=== PATIENT | female | born 1980 | race Caucasian/White ===

== ENCOUNTER 2019-05-08 15:53 | Outpatient (CLI) | payer OTHER, SELFPAY ==
--- NOTE | ~2019-05-08 | US_ITS ---
EXAMINATION: US OB <= 14 weeks fetus DATE: 05/08/2019 16:19 INDICATION: First trimester dating TECHNIQUE: Real-time pelvic transabdominal and transvaginal ultrasound was performed. COMPARISON: None. FINDINGS: The uterus measures 13.0 x 5.8 x 7.7 cm. There is an intrauterine gestational sac. There i s a 1.0 x 0.7 x 1.4 cm hypoechoic area adjacent to the gestational sac. A yolk sac is identified. Fet al heart motion is identified measuring 173 beats per minute (bpm) by M-mode Doppler. The crown rump length measures 2.1 cm , which correlates with an estimated gestational age of 8 weeks and 5 da y(s) (+/-) 5 day(s). The left ovary is not visualized however no left adnexal abnormality is seen. The right ovary measure s 3.3 x 1.9 x 2.8 cm. There is no free fluid in the pelvis. IMPRESSION: 1. Live intrauterine with an estimated gestational age of 8 weeks and 5 day(s) (+/-) 5 day( s) and an estimated delivery date of 12/13/2019. 2. Small subchronic hemorrhage. Reviewed, dictated and finalized at location A. [facility]ER SERGEANT IMPRESSION: 1. Live intrauterine with an estimated gestational age of 8 weeks and 5 day(s) (+/-) 5 day(s) and an estimated delivery date of 12/13/2019. 2. Small subchronic hemorrhage.
== END 2019-05-08 15:54 ==
PROVIDERS: PCP Family Medicine; Visit Provider Nurse Practitioner
DX: Z36.87 Encounter for antenatal screening for uncertain dates (principal); O45.91 Premature separation of placenta, unspecified, first trimester; Z3A.08 8 weeks gestation of pregnancy
CPT/HCPCS: 76801

== ENCOUNTER 2019-06-05 15:48 | Outpatient (CLI) | payer OTHER, SELFPAY ==
--- NOTE | ~2019-06-05 | US_ITS ---
EXAMINATION: US OB limited DATE: 06/05/2019 16:09 INDICATION: Subchorionic hemorrhage TECHNIQUE: Real-time transabdominal obstetric ultrasound. FINDINGS: Comparison ultrasound dated 05/08/2019 The uterus measures 15.5 x 6.5 x 9.1 cm. There is a small subchorionic hemorrhage measuring 2.3 x 2 x 1.4 cm. There is an intrauterine gestational sac, with pole identified. heart rate is 16 0 BPM. IMPRESSION: 1. Single living intrauterine with heart rate of 160 BPM. 2: Small subchorionic hemorrhage measuring 2.3 x 2 x 1.4 cm. Reviewed, dictated and finalized at location A.
== END 2019-06-05 15:49 ==
PROVIDERS: Visit Provider Obstetrics & Gynecology Gynecology
DX: O36.8910 Maternal care for other specified fetal problems, first trimester, not applicable or unspecified (principal)
CPT/HCPCS: 76815

== ENCOUNTER 2019-10-23 14:44 | Outpatient (RCR) | payer OTHER, SELFPAY ==
[2019-10-23 16:53] LABS: Hematocrit 28.7 % (37.0-47.0); Hemoglobin 9.3 g/dL (12.0-15.0)
[2019-10-23 16:55] LABS: Glucose 1 Hour PP 50gm Dose 130 mg/dL
[2019-10-23 18:50] LABS: HIV 1/2 Ab P24 Ag Result Negative (Negative)
[2019-10-23 19:23] LABS: Vitamin D 25 Hydroxy 43.3 ng/mL
[2019-10-26] MEDS: RHO(D) IMMUNE GLOBULIN 300 MCG SYRINGE IM (14:30)
== END 2020-01-21 23:59 | disposition home or self-care (01) ==
LOC: ANHLAB 14:44
PROVIDERS: PCP Family Medicine; Visit Provider Nurse Practitioner
DX: Z29.13 Encounter for prophylactic Rho(D) immune globulin (principal); Z11.4 Encounter for screening for human immunodeficiency virus [HIV]; O36.0920 Maternal care for other rhesus isoimmunization, second trimester, not applicable or unspecified; E55.9 Vitamin D deficiency, unspecified; Z3A.00 Weeks of gestation of pregnancy not specified
CPT/HCPCS: 36415; 82306; 82947; 85014; 85018; 85461; 86703; 90384; 96372; G0432; J2790

== ENCOUNTER 2019-11-17 15:28 | Outpatient (CLI) | payer OTHER, SELFPAY ==
[2019-11-17 15:51] LABS: Hematocrit 25.7 % (37.0-47.0); Mean Corpuscular HGB Conc 31.1 g/dl (32-36); Mean Corpuscular Hemoglobin 23.2 pg (26-34); Mean Corpuscular Volume 74.5 fl (80-100); Mean Platelet Volume 10.2 fl (7.4-10.4); Platelet Count Result 283 k/mm3 (150-375); Red Blood Count 3.45 M/mm3 (4.2-5.4); Red Cell Distribution Width 16.2 % (11.5-14.5); White Blood Count 10.6 K/mm3 (4.5-10.0)
== END 2019-11-17 15:29 | disposition home or self-care (01) ==
PROVIDERS: PCP Family Medicine; Visit Provider Obstetrics & Gynecology Gynecology
DX: Z34.93 Encounter for supervision of normal pregnancy, unspecified, third trimester (principal); Z3A.00 Weeks of gestation of pregnancy not specified
CPT/HCPCS: 36415; 85027

== ENCOUNTER 2019-12-07 10:50 | Outpatient (CLI) | payer OTHER, SELFPAY ==
[2019-12-07 11:08] LABS: Hematocrit 30.3 % (37.0-47.0); Hemoglobin 9.6 g/dL (12.0-15.0); Mean Corpuscular HGB Conc 31.7 g/dl (32-36); Mean Corpuscular Hemoglobin 24.8 pg (26-34); Mean Corpuscular Volume 78.3 fl (80-100); Mean Platelet Volume 10.5 fl (7.4-10.4); Platelet Count Result 240 k/mm3 (150-375); Red Blood Count 3.87 M/mm3 (4.2-5.4); Red Cell Distribution Width 22.5 % (11.5-14.5); White Blood Count 9.3 K/mm3 (4.5-10.0)
[2019-12-08 07:45] LABS: Rapid Plasma Reagin Non-Reactive (NonReactive)
== END 2019-12-07 10:51 | disposition home or self-care (01) ==
PROVIDERS: PCP Family Medicine; Visit Provider Obstetrics & Gynecology Gynecology
DX: Z01.812 Encounter for preprocedural laboratory examination (principal)
CPT/HCPCS: 36415; 85027; 86592; 86850; 86880; 86900; 86901; 86902

== ENCOUNTER 2019-12-08 05:27 | Inpatient (IN) | payer OTHER, SELFPAY ==
--- NOTE | 2019-11-17 15:09 | PC.NURSE ---
VERIFIED WITH OR SCHEDULE AND PATIENT --C/S WITH TUBAL LIGATION ON 12/08/19 AT 0730 PATIENT GIVEN REQUISITION FOR PRE-OP LAB DRAW ON 12/07/19
[2019-12-08] VITALS (73 sets, daily range): BP systolic 103–156; BP diastolic 59–96; PULSE 62–97; RESP 16–19; TEMP 36.4–37.4; O2SAT 92–100; BMI 34.4
--- NOTE | 2019-12-08 05:51 | LDADM ---
This patient, Ronda Damon, was admitted to Labor/Delivery/Recovery 120 on 12/08/19 at 05:27. Plans for labor, pain management and were discussed with patient. Patient/family oriented to hospital policies and general routines including ID bracelet, bed and alarms, visiting hours, pain management, procedures, bathroom and other care routines, personal items, smoking policy, room service/diet and guest tray routines, security routines, and visiting hours. Patient/Family are encouraged to report perceived risks to care and to ask questions if they do not understand what they are told or what they should do. See OBIX for further documentation.
[2019-12-08] MEDS: LACTATED RINGERS 1,000 ML 125 ML IV CONT ×2 (06:16→07:02)
--- NOTE | 2019-12-08 06:59 | WPDANESEPPF ---
Anes - Initial Pre Proc Eval Procedure: Operation Date: 12/08/19 07:30 Proposed Procedures p Repeat Section, Possible Bilateral Tubal Ligation - Nila Mckeon MD Date/Time: 12/08/19 06:59 Surgeon: Nila Mckeon MD Pre Op Diagnosis: Section Patient Data Age: 39 Gender: F Height: 5 ft 5 in Weight: 94 kg Last Vital Signs Temp 36.8 C 12/08/19 05:39 Pulse 76 12/08/19 06:31 BP 151/86 H 12/08/19 06:31 Allergies Allergy/AdvReac Type Severity Reaction Status Date / Time No Known Allergies Allergy Verified 12/08/19 06:47 Home Medications Medication Instructions Recorded Confirmed Type PNV no.[id number] 2 tablet PO DAILY 11/17/19 12/08/19 History [ Gummies] aspirin [Aspirin Low Dose] 81 mg PO DAILY 11/17/19 12/08/19 History cetirizine [Zyrtec] 10 mg PO DAILY 11/17/19 12/08/19 History ferrous sulfate 27 mg PO BID 11/17/19 12/08/19 History Patient hx anesthesia problems: none Family hx anesthesia problems: none PMFSH Past Medical History Medical History Iron deficiency anemia during Surgical History Surgical History delivery delivered Family History Family History Grandparent Diabetes mellitus Carcinoma of colon Cancer Social History Social History Years smoked: 4 Smoking status: Never smoker Tobacco type: cigarettes Second hand tobacco smoke exposure: No Alcohol intake: never Substance use: never Substance use type: does not use Living arrangements: with family Gender identity (if verbalized by the patient): Female 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 Questions were solicited and answers provided to the satisfaction of the patient/family/POA.
--- NOTE | 2019-12-08 07:22 | PM.IMHP ---
H&P: HPI History of Present Illness Date/Time: 12/08/19 07:22 Chief complaint: Section Narrative: Ronda Damon is a 39 year old female A1 at 39 wks EGA here for repeat LTCS. She has completed her childbearing and also plans BTL. Risks of failure with increased ectopic if fails, permanent and irreversible nature of tubal reviewed. has been complicated by anemia and patient recently received IV iron. labs: B-; RPR-; HBSAg-; HIV-; Rubella immune; GBS-. BP's on admit today are elevated. Patient denies any PIH sx. [facility] Past Medical History Medical History (Updated 12/08/19 @ 07:27 by Nila Mckeon MD) Iron deficiency anemia during Seasonal allergic rhinitis Termination of 1996 Surgical History Surgical History (Updated 12/08/19 @ 07:27 by Nila Mckeon MD) delivery delivered 2014 due to failure to progress and decelerations H/O sinus surgery Family History Family History Grandparent Diabetes mellitus Carcinoma of colon Cancer Social History Social History Years smoked: 4 Smoking status: Never smoker Tobacco type: cigarettes Second hand tobacco smoke exposure: No Alcohol intake: never Substance use: never Substance use type: does not use Living arrangements: with family Gender identity (if verbalized by the patient): Female Spiritual care concerns: No (Jehovah'S Witness) Agree to blood products: Yes Meds Home Medications and Allergies Home Medications Medication Instructions Recorded Confirmed Type PNV no.[id number] 2 tablet PO DAILY 11/17/19 12/08/19 History [ Gummies] aspirin [Aspirin Low Dose] 81 mg PO DAILY 11/17/19 12/08/19 History cetirizine [Zyrtec] 10 mg PO DAILY 11/17/19 12/08/19 History ferrous sulfate 27 mg PO BID 11/17/19 12/08/19 History Allergies Allergy/AdvReac Type Severity Reaction Status Date / Time No Known Allergies Allergy Verified 12/08/19 06:47 Vital Signs Vital Signs - 24 hr 12/08/19 05:39 12/08/19 05:41 12/08/19 05:55 Temperature 98.2 F Pulse Rate 95 77 Blood Pressure 129/96 H 155/87 H 12/08/19 06:01 12/08/19 06:17 12/08/19 06:31 Temperature Pulse Rate 83 83 76 Blood Pressure 137/83 147/90 H 151/86 H 12/08/19 07:01 Temperature Pulse Rate 85 Blood Pressure 150/88 H Exam Const: General: no acute distress Resp: Auscultation: clear to auscultation bilaterally Cardio: Rate: regular rate Rhythm: regular rhythm GI: GI Palp: Yes Soft to palpation Percussion: Yes other (gravid FH39 cm) : External Female Exam: normal external appearance Speculum Exam - Vagina: normal appearance of the vagina Speculum Exam - Cervix: Cervical os closed Assessment and Plan Assessment and plan (1) Previous section complicating : Code(s): O34.219 - Maternal care for unspecified type scar from previous delivery Status: Acute Assessment and Plan: Patient declines trial of labor and wants to proceed with repeat LTCS (2) Encounter for sterilization: Code(s): Z30.2 - Encounter for sterilization Status: Acute Assessment and Plan: Plan BTL (3) 39 weeks gestation of : Code(s): Z3A.39 - 39 weeks gestation of Status: Acute
--- NOTE | 2019-12-08 07:29 | SUR.OPER ---
FHT doppled at 155 prior to prepping patient in OR.
[2019-12-08 07:34] LABS: Alanine Aminotransferase 21 U/L (4-35); Albumin Level 3.3 g/dL (3.5-5.1); Alkaline Phosphatase 149 U/L (38-126); Anion Gap 6 mmol/L (8-16); Aspartate Amino Transferase 23 U/L (14-36); Bilirubin,Total 0.3 mg/dL (0.2-1.3); Blood Urea Nitrogen 11 mg/dL (7-17); Calcium 8.5 mg/dL (8.4-10.2); Carbon Dioxide 22 mmol/L (22-30); Chloride 106 mmol/L (98-107); Estimated CRCL calculation 121 ml/min; Estimated Glomerular Filt Rate > 60; Glucose 82 mg/dL (65-105); Potassium 4.1 mmol/L (3.4-5.0); Sodium 134 mmol/L (137-145); Uric Acid 5.8 mg/dL (2.5-7.5)
--- NOTE | 2019-12-08 08:35 | P.OP_ITS ---
Procedure Note - Detailed Date of procedure: 12/08/19 Pre-op diagnosis: Section IUP 39 wks prior csection requests sterilization Post-op diagnosis: same Procedure performed: repeat LTCS; BTL Description of procedure: The patient was taken to the operating room and placed under spinal anesthesia. She was prepped and draped in the usual sterile fashion. Once anesthesia was deemed adequate a Pfannenstiel skin incision was made with a scalpel and carried down to the underlying layer of fascia. Fascial incision was extended laterally using Hidalgo scissors. There was extensive scar tissue in the fascial layer this was quite difficult to dissect. [facility] is were used to tent the fascia which was then dissected off using sharp and blunt dissection. Again extensive dissection was required due to the dense scar tissue. The peritoneum was tented and entered with Metzenbaum. The incision was attempted to be expanded with blunt traction but due to underlying scar tissue and adherence to the uterus sharp dissection was required. The bladder flap was adherent tube proximally the mid uterus this was dissected off using sharp and blunt dissection. The bladder blade is placed at the lower uterine segment is incised in a transverse fashion with the scalpel. The incision is extended laterally using blunt traction. The membranes are ruptured and clear fluid is noted. Due to the immobility of the tissues the kiwi vacuum was placed and attempt was made to deliver the head. The head was noted to be lodged at the fascial and rectus muscle layer the rectus muscles were incised using Bovie cautery approximately 2cm. The 2nd attempt to deliver the infant with kiwi vacuum while the executive administrative assistant applied fundal pressure was successful the infant was fully delivered the cord was clamped and cut and the handed to the waiting nursery nurse. The placenta was removed manual traction after gases and cord blood were taken. The uterus was cleared of all clots and debris and left in situ. Due to the dense adhesions and decision was made to leave the uterus in. The Tyrell O retractor was placed. The uterine incision was closed using 0 Monocryl in a running locked fashion. Same suture was used to imbricate. Several additional sutures over the scar tissue dissection were required for hemostasis. Once the area was hemostatic the left tube was grasped with [place] cross clamped using a Z clamp and excised. The pedicle was tied off using a Osiel stitch of 0 Vicryl. Good hemostasis of the pedicle was noted the identified procedure was performed on the right side again good hemostasis is noted. Gentle irrigation of the gutters was undergone both pedicles appeared hemostatic at the end of irrigation. The Tyrell O retractor was removed the fascia is closed using 0 Vicryl in a running fashion subcutaneous tissues are irrigated and made hemostatic using Bovie cautery. Skin is closed using 4 0 Vicryl in a subcuticular fashion. Dermaflex was placed over the incision. Sponge instrument and needle counts are correct per the OR staff. Anesthesia: spinal Surgeon: Nila Mckeon MD Estimated blood loss (mL): 450 Drains: Yes (gillette) Packing: No Pathology: yes (tubes) Complications: No immediate complications Condition: stable Disposition: PACU Findings: female 8/9 ; 7#13oz normal appearing tubes, ovaries, and uterus extensive scarring of fascia, peritoneum, and bladder flap
--- NOTE | 2019-12-08 08:54 | PM.OBDSVD ---
DS: Admitting Diagnosis Admitting Diagnosis Admitting Diagnosis: Section Prior csection IUP 39 wks requests sterilization DS: Discharge Diagnosis Discharge Diagnosis (1) 39 weeks gestation of : Code(s): Z3A.39 - 39 weeks gestation of Status: Acute (2) Previous section complicating : Code(s): O34.219 - Maternal care for unspecified type scar from previous delivery Status: Acute (3) Encounter for sterilization: Code(s): Z30.2 - Encounter for sterilization Status: Acute (4) delivery delivered: Code(s): O82 - Encounter for delivery without indication Status: Acute OB - DS: Summary OB Procedures : Ultrasound OB Procedures Intrapartum: low cervical, transverse and Tubal ligation OB Procedures: : None Peripartum Data Infant Delivery Method: Section Procedures: Procedures Operation Date: 12/08/19 07:30 Actual Procedures Side Surgeon p Section Bilateral Nila Mckeon MD complications: none Status at Discharge Functional status at discharge: independent ambulation Overall status at discharge: patient is progressing back to baseline Time Spent with Patient Time attestation: Total time spent providing and/or coordinating discharge services: DS: Data Data Completed and Pending Pending studies at discharge: Pending at discharge 12/08/19 07:55 Surgical [PTH] Routine Labs on day of discharge: Labs from last 24 hours 12/08/19 07:18 Sodium 134 L Potassium 4.1 Chloride 106 Carbon Dioxide 22 Anion Gap 6 L BUN 11 Creatinine 0.60 L Estim Creat Clear Calc 121 Estimated GFR > 60 Glucose 82 Uric Acid 5.8 Calcium 8.5 Total Bilirubin 0.3 AST 23 ALT 21 Alkaline Phosphatase 149 H Total Protein 6.0 L Albumin 3.3 L Discharge Plan Discharge Attending physician on discharge: Nila Mckeon Consulting providers: Abdiel Richardson Discharging Clinician: Chris Bustillo Anticipated Discharge Date/Time: 12/11/19 08:56 Patient Disposition: Home, Self-Care Activity: may shower, may drive after 2 weeks and pelvic rest Diet: regular Wound Care Instructions: incision open to air Discharge Instructions: Education: Mom and Baby Guide Given to: Mother Follow-Up: Call your delivering provider's office for an appointment to be seen. Mom and baby should come to the [facility] for the follow-up appointment. Appointment Date/Time: December 11, 2019 at 9:00 am What to expect at your follow-up visit: Physical Assessment Call [phone] if you are unable to keep your appointment time. BREAST CARE: * Wear a snug supportive bra. * For engorgement discomfort: Breast Feeding: * Apply warm moist washcloths * Express milk as needed to relieve engorgement * Wear loose clothing * For sore nipples: * Identify correct latch-on * Apply warm moist washcloths before and after nursing * Air dry nipples after nursing * May apply Lansinoh cream to nipples ABDOMINAL INCISION: * Allow incision to air dry * Do NOT use lotions for powders on your incision * When showering, allow soap and water to run over the incision, but do not wash incision PERINEAL CARE: * Until bleeding stops, use your nelson bottle after urinating * Change your pad frequently throughout the day * No tub baths until seen by your physician - You may shower ACTIVITY: * Rest as much as possible. * Do not exercise or lift anything heavier than your baby (such as laundry or other children.) * Avoid stairs or driving as much as possible. * Do not put anything into the vagina. No douching, tampons, or sexual activity until seen by physician. NOTIFY PHYSICIAN IF YOU HAVE ANY QUESTIONS OR IF ANY OF THE FOLLOWING SYMPTOMS OCCUR: * If your incision beco
[2019-12-08] MEDS: OXYTOCIN 30 UNITS/NS 500 ML 30 UNITS/500 ML BAG 125 UNITS IV CONT (09:52)
--- NOTE | 2019-12-08 12:37 | OBPPTRN ---
@ 1056 Patient transferred to post room #287 via stretcher. Support person present. Oriented to unit, room, information board, rooming in, admission packet and security measures. Patient verbalizes understanding.
[2019-12-08] MEDS: DEXTROSE 5%/0.45% SOD CHL 1,000 ML 125 ML IV CONT (14:25)
[2019-12-08] MEDS: POLYSACCHARIDE IRON COMPLEX 150 MG CAPSULE PO (16:41)
[2019-12-08] MEDS: DOCUSATE SODIUM 100 MG CAPSULE PO (16:42)
[2019-12-08] MEDS: IBUPROFEN 600 MG TABLET PO (16:43)
[2019-12-09] VITALS: BP 123/74; PULSE 89; RESP 18; TEMP 36.6; O2SAT 98
[2019-12-09] MEDS: IBUPROFEN 600 MG TABLET PO ×3 (01:57→14:55)
[2019-12-09] MEDS: ACETAMINOPHEN 325 MG TABLET 650 MG PO (01:59)
[2019-12-09 04:00] VITALS: BP 129/78; PULSE 90; RESP 18; TEMP 36.5; O2SAT 98
[2019-12-09 05:39] LABS: Basophils Percent Auto 0.3 % (0.2-1.2); Eosinophils Absolute Auto 0.2 K/mm3 (0-0.3); Eosinophils Percent Auto 1.7 % (0-4.4); Hematocrit 26.7 % (37.0-47.0); Hemoglobin 8.5 g/dL (12.0-15.0); Immature Granulocyte Absolute 0.06 K/mm3 (0.00-0.031); Immature Granulocyte Percent A 0.5 % (0-0.5); Immature Platelet Fraction Pct 6.2 % (0.9-11.2); Lymphocytes Percent Auto 10.9 % (18.3-44.2); Mean Corpuscular HGB Conc 31.8 g/dl (32-36); Mean Corpuscular Hemoglobin 25.1 pg (26-34); Mean Platelet Volume 10.7 fl (7.4-10.4); Monocytes Absolute Auto 0.5 K/mm3 (0.1-0.6); Monocytes Percent Auto 4.2 % (2.6-8.5); Neutrophils Percent Auto 82.4 % (45.5-73.1); Platelet Count Result 215 k/mm3 (150-375); Red Blood Count 3.38 M/mm3 (4.2-5.4); Red Cell Distribution Width 23.1 % (11.5-14.5)
[2019-12-09 07:45] VITALS: BP 136/65; PULSE 88; RESP 18; TEMP 37.3; O2SAT 98
[2019-12-09] MEDS: POLYSACCHARIDE IRON COMPLEX 150 MG CAPSULE PO ×2 (08:57→17:22)
[2019-12-09] MEDS: MULTIVIT/MIN/PREN/FOL AC/IRON TABLET 1 TAB PO (08:58)
[2019-12-09] MEDS: DOCUSATE SODIUM 100 MG CAPSULE PO ×2 (08:58→17:22)
--- NOTE | 2019-12-09 13:05 | WPDANLDPN2 ---
Anes-Prog Note L&D Date/Time: 12/09/19 13:05 Comfortable throughout: section Neuraxial method: spinal Epidural/Spinal procedure site: clean & non-tender Neuro status: Neuro function grossly intact. Cardiovascular status: normal Respiratory status: normal Airway patency: baseline Mental status: baseline Post-Op hydration status: normal Vital Signs: Last Vital Signs Temp 37.3 C 12/09/19 07:45 Pulse 88 12/09/19 07:45 Resp 18 12/09/19 07:45 BP 136/65 12/09/19 07:45 Pulse Ox 98 12/09/19 07:45 Pain score (VAS): 1 I/O: Intake & Output 12/08/19 12/09/19 12/09/19 23:59 07:59 15:59 Intake Total 2983 1900 Output Total 1600 2500 450 Balance 1383 -600 -450 Post-procedural complaints: pruritis mild, no treatment Patient feedback: Patient satisfied with anesthetic care.
--- NOTE | 2019-12-09 13:06 | WPDANLDNPN2 ---
Anes-Prog Note L&D-Neuraxial Date/Time: 12/09/19 13:06 Neuraxial medications: intrathecal PF morphine Opiod-related complaints: pruritis mild, no treatment Patient feedback: Patient satisfied with post-operative pain management.
--- NOTE | 2019-12-09 14:00 | PC.NURSE ---
Consulted with patient, mother wishes observation of latching. Mother reports is eagerly latching without discomfort. Mother states it has been a few years since she last breastfed. Reviewed infant feeding cues, frequencies, duration of feedings, feeding elimination flow sheet, and signs of adequate intake. Demonstrated stimulation techniques to wake for feeding. Assisted with infant to breast. Reviewed positioning/alignment in cross cradle, holding breast in U hold and guided asymmetrical latch on. was able to latch correctly. Infant nursed sleepily with bursts of rhythmic draws and frequent swallowing noted. Reviewed signs of a correct latch, effective nursing and suck swallow ratio. Infant was able to maintain latch without discomfort to mother. Nipple care reviewed. Suggested mother stimulate while feeding to keep infant awake and nursing effectively for increased intake and to assist with maintaining deep latch. Demonstrated how to adjust latch more deeply while feeding. Instructed mother to call out for RN assistance if she is unable to latch infant for feeding or she has discomfort with nursing. Instructed feeding should be initiated three hours from start of last feeding or if feeding cues are noted before. Mother voiced understanding of information shared.
[2019-12-09] MEDS: RHO(D) IMMUNE GLOBULIN 300 MCG SYRINGE IM (15:04)
[2019-12-09 19:53] VITALS: BP 130/79; PULSE 87; RESP 18; TEMP 36.5; O2SAT 98
[2019-12-10] MEDS: IBUPROFEN 600 MG TABLET PO (05:28)
[2019-12-10 07:40] VITALS: BP 130/79; PULSE 80; RESP 16; TEMP 37.3; O2SAT 96
--- NOTE | 2019-12-10 09:50 | PC.NURSE ---
Observed mother is able to independently latch with appropriate positioning/alignment. She denies any nipple discomfort, is feeding as required and waking infant to feed if needed. has had at least 8 effective feedings in the past 24 hours, and is currently meeting outcomes for weight, output, jaundice and feeding frequencies. Mother states she feels confident to continue effective at home. Reviewed transition to breast milk, signs of adequate intake, and engorgement/relief. Instructed to call ICP if intake/output less than required. Reviewed regular medications mother is taking. Information provided per Hilda. Reviewed community resources on the [facility] website and in the Mom/Baby guide. Information on outpatient services provided. Mother has no further questions at this time.
[2019-12-10] MEDS: MULTIVIT/MIN/PREN/FOL AC/IRON TABLET 1 TAB PO (11:09)
[2019-12-10] MEDS: POLYSACCHARIDE IRON COMPLEX 150 MG CAPSULE PO (11:10)
[2019-12-10] MEDS: DOCUSATE SODIUM 100 MG CAPSULE PO (11:10)
[2019-12-11 09:19] VITALS: BP 135/73; PULSE 98; RESP 16; TEMP 36.9; O2SAT 100
== END 2019-12-10 14:14 | disposition home or self-care (01) | DRG 785 ==
LOC: ANHLDR 08:58 → ANHOB2 12-10 12:55 → ANHLDR 12-11 10:59 → ANHOB2 12-11 10:59
PROVIDERS: Admitting Provider Obstetrics & Gynecology Gynecology; PCP Family Medicine; Visit Provider Obstetrics & Gynecology
PROC: 10D00Z1 Extraction of Products of Conception, Low, Open Approach (ICD-10-PCS; CPT 59514; principal; 2019-12-08 07:30)
DX: O34.211 Maternal care for low transverse scar from previous cesarean delivery (principal); Z37.0 Single live birth; Z3A.39 39 weeks gestation of pregnancy; Z23 Encounter for immunization; O99.214 Obesity complicating childbirth; E66.9 Obesity, unspecified; Z30.2 Encounter for sterilization; O99.02 Anemia complicating childbirth; D50.9 Iron deficiency anemia, unspecified; L29.9 Pruritus, unspecified; O99.73 Diseases of the skin and subcutaneous tissue complicating the puerperium
CPT/HCPCS: 36415; 80053; 84550; 85025; 85027; 85055; 85461; 86592; 86850; 86880; 86900; 86901; 88302; 90384; 90471; 90686; A9270; G0008; J0131; J2274; J2370; J2405; J2590; J2790; J7120

== ENCOUNTER 2019-12-15 15:53 | Observation (INO) | payer OTHER, SELFPAY ==
[2019-12-15] VITALS (39 sets, daily range): BP systolic 137–163; BP diastolic 76–98; PULSE 69–87; RESP 18; TEMP 36.4–36.7; O2SAT 97–100
--- NOTE | ~2019-12-15 | CT_ITS ---
EXAMINATION: CTA chest PE protocol DATE: 12/16/2019 10:36 CDT INDICATION: Shortness of breath. Pulmonary embolism. TECHNIQUE: Computed tomographic angiography (CTA) of the chest was performed with 100 mL Omnipaque-35 0 intravenous contrast. The dose-length product was 501.02 mGy-cm. Maximum intensity projection 3D-re constructions of the aorta and other arteries were constructed by the technologist on a separate work station. Automated exposure control and iterative reconstruction technique were employed. COMPARISON: Chest dated 12/15/2019 FINDINGS: The study is technically adequate without evidence for pulmonary embolism. No significant p leural or pericardial effusion. No evidence for aortic aneurysm or dissection. No thoracic lymphadeno danyelle. No focal airspace consolidation. No pneumothorax. No suspicious pulmonary nodules or masses. M ildly elevated left diaphragm. No acute bone or joint abnormality. IMPRESSION: 1. No acute cardiopulmonary disease. No evidence for pulmonary embolism. Reviewed, dictated and finalized at location A.
--- NOTE | ~2019-12-15 | XR_ITS ---
EXAMINATION: XR chest 2V 12/15/2019 17:59 INDICATION: Shortness of breath with exertion PROCEDURE: 2 view chest COMPARISON: 08/20/2018 FINDINGS: The lungs are clear. The cardiomediastinal silhouette is within normal limits. There are no pleural effusions. There is no pneumothorax suspected. IMPRESSION: 1: NO ACUTE CARDIOPULMONARY DISEASE. Reviewed, dictated and finalized at location A.
[2019-12-15 16:21] LABS: Basophils Absolute Auto 0.1 K/mm3 (0.0-0.1); Basophils Percent Auto 0.7 % (0.2-1.2); Eosinophils Absolute Auto 0.2 K/mm3 (0-0.3); Eosinophils Percent Auto 2.4 % (0-4.4); Hematocrit 30.9 % (37.0-47.0); Hemoglobin 9.5 g/dL (12.0-15.0); Immature Granulocyte Absolute 0.11 K/mm3 (0.00-0.031); Immature Granulocyte Percent A 1.3 % (0-0.5); Lymphocytes Absolute Auto 2.13 K/mm3 (0.9-3.2); Lymphocytes Percent Auto 24.5 % (18.3-44.2); Mean Corpuscular HGB Conc 30.7 g/dl (32-36); Mean Corpuscular Hemoglobin 25.7 pg (26-34); Mean Corpuscular Volume 83.7 fl (80-100); Mean Platelet Volume 9.8 fl (7.4-10.4); Monocytes Absolute Auto 0.5 K/mm3 (0.1-0.6); Monocytes Percent Auto 5.5 % (2.6-8.5); Neutrophils Absolute Auto 5.7 K/mm3 (1.3-6.7); Neutrophils Percent Auto 65.6 % (45.5-73.1); Nucleated Red Blood Cells Perc 0.2 % (0.0-0.2); Platelet Count Result 361 k/mm3 (150-375); Red Blood Count 3.69 M/mm3 (4.2-5.4); Red Cell Distribution Width 23.9 % (11.5-14.5); White Blood Count 8.7 K/mm3 (4.5-10.0)
[2019-12-15 16:35] LABS: Alanine Aminotransferase 49 U/L (4-35); Albumin Level 3.9 g/dL (3.5-5.1); Alkaline Phosphatase 98 U/L (38-126); Anion Gap 7 mmol/L (8-16); Aspartate Amino Transferase 39 U/L (14-36); Bilirubin,Total 0.3 mg/dL (0.2-1.3); Blood Urea Nitrogen 12 mg/dL (7-17); Carbon Dioxide 24 mmol/L (22-30); Chloride 107 mmol/L (98-107); Estimated Glomerular Filt Rate > 60; Glucose 98 mg/dL (65-105); Sodium 138 mmol/L (137-145); Uric Acid 7.6 mg/dL (2.5-7.5)
--- NOTE | 2019-12-15 17:25 | PC.NURSE ---
called DR. Bustillo and notified pt admission for elevated BP and short of breath. reported PIH lab result and elevated BP. order received for Labetalol and chest x ray.
[2019-12-15] MEDS: LABETALOL HCL 100 MG TABLET 200 MG PO (17:46)
--- NOTE | 2019-12-15 18:00 | PC.NURSE ---
pt off floor for x ray.
[2019-12-15] MEDS: FUROSEMIDE 20 MG TABLET PO (20:28)
[2019-12-16] VITALS (9 sets, daily range): BP systolic 133–144; BP diastolic 72–84; PULSE 75–100; O2SAT 96–99
[2019-12-16] MEDS: LABETALOL HCL 100 MG TABLET 200 MG PO (05:33)
--- NOTE | 2019-12-16 05:42 | PC.NURSE ---
pt has denied SOB all night
[2019-12-16 06:11] LABS: Basophils Absolute Auto 0.1 K/mm3 (0.0-0.1); Basophils Percent Auto 0.8 % (0.2-1.2); Eosinophils Absolute Auto 0.2 K/mm3 (0-0.3); Eosinophils Percent Auto 2.5 % (0-4.4); Hematocrit 30.2 % (37.0-47.0); Hemoglobin 9.2 g/dL (12.0-15.0); Immature Granulocyte Absolute 0.08 K/mm3 (0.00-0.031); Lymphocytes Percent Auto 26.7 % (18.3-44.2); Mean Corpuscular HGB Conc 30.5 g/dl (32-36); Mean Corpuscular Hemoglobin 25.6 pg (26-34); Mean Corpuscular Volume 84.1 fl (80-100); Mean Platelet Volume 9.6 fl (7.4-10.4); Monocytes Absolute Auto 0.5 K/mm3 (0.1-0.6); Monocytes Percent Auto 6.1 % (2.6-8.5); Neutrophils Absolute Auto 4.9 K/mm3 (1.3-6.7); Neutrophils Percent Auto 62.9 % (45.5-73.1); Platelet Count Result 340 k/mm3 (150-375); Red Blood Count 3.59 M/mm3 (4.2-5.4); Red Cell Distribution Width 24.1 % (11.5-14.5); White Blood Count 7.9 K/mm3 (4.5-10.0)
[2019-12-16 06:20] LABS: Alanine Aminotransferase 39 U/L (4-35); Albumin Level 3.4 g/dL (3.5-5.1); Alkaline Phosphatase 90 U/L (38-126); Anion Gap 7 mmol/L (8-16); Aspartate Amino Transferase 29 U/L (14-36); Bilirubin,Total 0.2 mg/dL (0.2-1.3); Blood Urea Nitrogen 13 mg/dL (7-17); Calcium 8.6 mg/dL (8.4-10.2); Carbon Dioxide 24 mmol/L (22-30); Chloride 106 mmol/L (98-107); Estimated Glomerular Filt Rate > 60; Glucose 101 mg/dL (65-105); Potassium 3.5 mmol/L (3.4-5.0); Sodium 137 mmol/L (137-145); Uric Acid 7.8 mg/dL (2.5-7.5)
--- NOTE | 2019-12-16 08:14 | PC.NURSE ---
Ronda denies headache, blurry vision, epigastric pain. Lungs clear. No clonus bilaterally.
--- NOTE | 2019-12-16 09:05 | PM.IMHP ---
H&P: HPI History of Present Illness Date/Time: 12/16/19 09:05 Chief complaint: PP PIH Narrative: Ronda Damon is a 39 year old females/p LTCS 1 week ago admitted for elevated pressure and shortness of breath with laying down but none with exertion. Patient also denied any other symptoms or complications with . Patient talked to rn admissions physician Saturday and told if symptoms worsen or did not resolve to come in to be evaluated. Patient reports began to notice some symptoms with walking and came in. Patient also reported some extremity swelling also. [facility] Past Medical History Medical History Iron deficiency anemia during Seasonal allergic rhinitis Termination of 1996 Surgical History Surgical History delivery delivered 2014 due to failure to progress and decelerations H/O sinus surgery Family History Family History Grandparent Diabetes mellitus Carcinoma of colon Cancer Social History Social History Years smoked: 4 Smoking status: Never smoker Tobacco type: cigarettes Second hand tobacco smoke exposure: No Alcohol intake: never Substance use: never Substance use type: does not use Gender identity (if verbalized by the patient): Female Spiritual care concerns: No (Catholic) Agree to blood products: Yes Meds Home Medications and Allergies Home Medications Medication Instructions Recorded Confirmed Type Gummies 2 tablet PO DAILY 11/17/19 12/16/19 History ferrous sulfate 27 mg PO BID 11/17/19 12/16/19 History hydrocodone-acetaminophen 1 tab PO Q3H PRN #30 tablet 12/10/19 12/16/19 Rx Allergies Allergy/AdvReac Type Severity Reaction Status Date / Time No Known Allergies Allergy Verified 12/08/19 06:47 Vital Signs Vital Signs - 24 hr 12/15/19 16:19 12/15/19 16:20 12/15/19 16:24 Temperature 36.7 C Pulse Rate 77 Respiratory Rate 18 Blood Pressure 157/90 H Blood Pressure [Right Arm] 157/90 H Pulse Oximetry 99 100 99 12/15/19 16:29 12/15/19 16:31 12/15/19 16:34 Temperature Pulse Rate 74 Respiratory Rate Blood Pressure 150/92 H Blood Pressure [Right Arm] Pulse Oximetry 99 98 12/15/19 16:39 12/15/19 16:44 12/15/19 16:46 Temperature Pulse Rate 74 Respiratory Rate Blood Pressure 137/91 H Blood Pressure [Right Arm] Pulse Oximetry 98 98 12/15/19 16:49 12/15/19 16:54 12/15/19 16:59 Temperature Pulse Rate Respiratory Rate Blood Pressure Blood Pressure [Right Arm] Pulse Oximetry 98 98 97 12/15/19 17:01 12/15/19 17:04 12/15/19 17:09 Temperature Pulse Rate 75 Respiratory Rate Blood Pressure 163/91 H Blood Pressure [Right Arm] Pulse Oximetry 98 98 12/15/19 17:14 12/15/19 17:16 12/15/19 17:19 Temperature Pulse Rate 78 Respiratory Rate Blood Pressure 151/85 H Blood Pressure [Right Arm] Pulse Oximetry 99 99 12/15/19 17:24 12/15/19 17:29 12/15/19 17:31 Temperature Pulse Rate 73 Respiratory Rate Blood Pressure 151/89 H Blood Pressure [Right Arm] Pulse Oximetry 99 98 12/15/19 17:34 12/15/19 17:46 12/15/19 18:25 Temperature Pulse Rate 87 Respiratory Rate Blood Pressure Blood Pressure [Right Arm] Pulse Oximetry 99 99 12/15/19 18:30 12/15/19 18:35 12/15/19 18:40 Temperature Pulse Rate Respiratory Rate Blood Pressure Blood Pressure [Right Arm] Pulse Oximetry 99 98 97 12/15/19 18:45 12/15/19 18:47 12/15/19 18:50 Temperature Pulse Rate 76 Respiratory Rate Blood Pressure 138/84 Blood Pressure [Right Arm] Pulse Oximetry 97 98 12/15/19 18:55 12/15/19 19:00 12/15/19 19:01 Temperature Pulse Rate 76 Respirat
--- NOTE | 2019-12-16 09:22 | ECG_ITS ---
Measurements Intervals [place] Rate: 78 P: 1 NC: 117 QRS: 52 QRSD: 91 T: 29 QT: 385 QTc: 441 Interpretive Statements SINUS RHYTHM WITH SHORT NC INTERVAL VENTRICULAR PREMATURE COMPLEXES MINIMAL Q WAVES- ANTEROLAT/INF LEADS BORDERLINE ECG Electronically Signed On 12-16-2019 12:19:06 CDT by Seth Steven D.O.
--- NOTE | 2019-12-16 10:18 | PC.NURSE ---
1020-Left unit via wheelchair, accompanied by Ghulam from CT. Vital signs stable.
== END 2019-12-16 13:21 | disposition home or self-care (01) ==
LOC: ANHOBOP 15:57 → ANHOBPP 15:57 → ANHOBOP 19:55 → ANHOBPP 19:55
PROVIDERS: Admitting Provider Obstetrics & Gynecology; PCP Family Medicine; Visit Provider Obstetrics & Gynecology
DX: O90.89 Other complications of the puerperium, not elsewhere classified (principal); R06.02 Shortness of breath; M79.89 Other specified soft tissue disorders; R94.31 Abnormal electrocardiogram [ECG] [EKG]
CPT/HCPCS: 36415; 71046; 71275; 80053; 84550; 85025; 93005; A9270; G0378; G0379; Q9967

== ENCOUNTER → 2020-11-24 05:41 | Outpatient (CLI) | payer OTHER, SELFPAY ==
[2020-11-24 19:19] LABS: SARS-CoV-2 RNA PCR Negative
== END ==
PROVIDERS: PCP Family Medicine; Visit Provider Physician Assistant
DX: R05 Cough (principal); Z20.822 Contact with and (suspected) exposure to COVID-19
CPT/HCPCS: C9803; U0003; U0005

== ENCOUNTER 2021-11-15 12:32 | Outpatient (CLI) | payer OTHER, SELFPAY ==
--- NOTE | 2021-11-15 16:05 | WPDPFTINT ---
PFT Procedure Performed PFT Procedure Performed Plethysmography (Lung Vol) Diffusing Cap (DLCO) Flow Vol Loop Spirometry w/o Bronchodil PFT Interpretation This is a pulmonary function test with spirometry, plethysmography and diffusing capacity. The test was performed and results interpreted in accordance with the 2019 and 2005 ATS/ERS Task Force guidelines respectively using the Global Lung Function Initiative-2012 reference equations. Patient demonstrated good effort and cooperation. Reproducibility criteria were met. The quality of the spirometry maneuver was Grade A. Findings: Spirometry: The contour the inspiratory and expiratory flow tracing are normal. The FVC is 4.47 L, 118% predicted. The FEV1 is 3.41 L, 110% predicted. The FEV1: FVC ratio 76%. Plethysmography: Total lung capacity is 5.77, 111% predicted. The functional residual capacity is 2.84 L, 98% predicted. The residual volume is 1.30 L, 79% predicted. Diffusing capacity: The diffusing capacity unadjusted for hemoglobin and carboxyhemoglobin is 23.8, 98% predicted. The diffusing capacity adjusted for alveolar volume is 4.33, 92% predicted. Impression: The spirometry is normal without evidence of an obstructive abnormality. The lung volumes are normal. The diffusing capacity is normal. There are no prior studies for comparison
== END 2021-11-15 12:33 | disposition home or self-care (01) ==
PROVIDERS: PCP Family Medicine; Visit Provider Physician Assistant Medical
DX: R05.9 Cough, unspecified (principal); R06.02 Shortness of breath
CPT/HCPCS: 94375; 94726; 94729

== ENCOUNTER 2022-08-08 11:49 | Outpatient (CLI) | payer OTHER, SELFPAY ==
--- NOTE | ~2022-08-08 | US_ITS ---
EXAMINATION: US thyroid DATE: 08/08/2022 12:08 INDICATION: Nontoxic single thyroid nodule. TECHNIQUE: Multiple ultrasound images of the thyroid were obtained. COMPARISON: Ultrasound 05/15/2018 FINDINGS: The right thyroid lobe measures 4.8 x 1.6 x 1.5 cm. The left thyroid lobe measures 4.6 x 1.5 x 1.6 c m. In the left thyroid lobe, there is a 6 mm solid, hypoechoic, wider than tall nodule with ill-defi tyler margin without echogenic foci (TI-RADS TR4). In the right thyroid lobe, there is a 5 mm solid, hy poechoic, wider than tall nodule with smooth margin without echogenic foci (TR4). In the right thyroi d lobe, there is a 4 mm nodule. IMPRESSION: 1. Small thyroid nodules, likely not clinically significant. No follow-up is needed. Reviewed, dictated and finalized at location A. IMPRESSION: 1. Small thyroid nodules, likely not clinically significant. No follow-up is ne eded.
== END 2022-08-08 11:50 ==
PROVIDERS: PCP Physician Assistant; Visit Provider Physician Assistant
DX: E04.2 Nontoxic multinodular goiter (principal)
CPT/HCPCS: 76536

== ENCOUNTER → 2022-10-19 09:48 | Outpatient (CLI) | payer OTHER, SELFPAY ==
--- NOTE | ~2022-10-19 | MM_ITS ---
EXAMINATION: MM screening venkatesh BI w erendira HISTORY: Baseline screening mammogram TECHNIQUE: Craniocaudal and mediolateral oblique 3-D tomosynthesis images were obtained and synthetic 2-D images were generated. CAD analysis was submitted and interpreted. COMPARISON: None, baseline BREAST PARENCHYMAL COMPOSITION: The breasts are heterogeneously dense, which may obscure small masses . FINDINGS: RIGHT BREAST: Asymmetry is are present in the posterior third of the outer breast on the craniocaudal view and the subareolar aspect of the breast in line with the nipple axis on the mediolateral obliqu e view. LEFT BREAST: An asymmetry is present in the middle third of the upper breast on the mediolateral obli que view. IMPRESSION: 1. Bilateral breast asymmetries. 2. Additional mammographic views and possible breast ultrasound are recommended to evaluate the asymm etries and establish a baseline given that this is the first mammographic examination. BI-RADS Category 0: Incomplete: Needs additional imaging evaluation. Reviewed, dictated and finalized at location A. IMPRESSION: 1. Bilateral breast asymmetries. 2. Additional mammographic views and possible breast ultrasound are recommended to evaluate the asymmetries and establish a baseline given that this is the fi rst mammographic examination. BI-RADS Category 0: Incomplete: Needs additional imaging evaluation.
== END ==
PROVIDERS: PCP Family Medicine; Visit Provider Nurse Practitioner
DX: Z12.31 Encounter for screening mammogram for malignant neoplasm of breast (principal); R92.8 Other abnormal and inconclusive findings on diagnostic imaging of breast
CPT/HCPCS: 77063; 77067

== ENCOUNTER 2022-11-23 11:53 | Outpatient (CLI) | payer OTHER, SELFPAY ==
--- NOTE | ~2022-11-23 | MMUS_ITS ---
EXAMINATION: MM diagnostic venkatesh BI w erendira, US breast BI limited HISTORY: Bilateral breast asymmetries on screening mammogram TECHNIQUE: Additional 3-D tomosynthesis images of the breasts were performed and synthetic 2-D images were generated. CAD analysis was submitted and interpreted. High resolution limited bilateral breast ultrasound was performed. COMPARISON: 10/19/2022 BREAST PARENCHYMAL COMPOSITION: The breasts are heterogeneously dense, which may obscure small masses . FINDINGS: MAMMOGRAPHIC FINDINGS: No persistent asymmetry is identified with spot compression of the right breast. There is persistent focal asymmetry in the middle third of the upper outer quadrant of the left breast without suspicious mass, calcification, or architectural distortion. ULTRASOUND: There is no evidence of focal abnormal solid or cystic mass in the vicinity of the mammographic findi ng in question in the right breast. There is a 3 mm x 2 mm oval, circumscribed, parallel, hypoechoic mass with no posterior features or internal vascularity at the 3:00 location, 5 cm from the nipple in the left breast. IMPRESSION: 1. Probably benign focal asymmetry and mass of the left breast. 2. Recommend 6 month follow-up left diagnostic mammogram and ultrasound. BI-RADS category 3, probably benign findings. Reviewed, dictated and finalized at location A. IMPRESSION: 1. Probably benign focal asymmetry and mass of the left breast. 2. Recommend 6 month follow-up left diagnostic mammogram and ultrasound. BI-RADS category 3, probably benign findings.
== END 2022-11-23 11:54 ==
PROVIDERS: PCP Obstetrics & Gynecology Gynecology; Visit Provider Obstetrics & Gynecology Gynecology
DX: R92.8 Other abnormal and inconclusive findings on diagnostic imaging of breast (principal)
CPT/HCPCS: 76642; 77062; 77066; G0279

== ENCOUNTER 2023-12-27 12:46 | Outpatient (CLI) | payer OTHER, SELFPAY ==
--- NOTE | ~2023-12-27 | MMUS_ITS ---
EXAMINATION: US breast BI limited, MM diagnostic venkatesh BI w erendira HISTORY: Follow-up breast asymmetry TECHNIQUE: Additional 3-D tomosynthesis images of the breasts were performed and synthetic 2-D images were generated. CAD analysis was submitted and interpreted. High resolution limited bilateral breast ultrasound was performed. COMPARISON: Comparison to multiple prior studies sequentially, with oldest reviewed study dated 10/19. BREAST PARENCHYMAL COMPOSITION: Dense: The breasts are heterogeneously dense, which may obscure small masses FINDINGS: MAMMOGRAPHIC FINDINGS: There are no suspicious masses, calcifications or architectural distortion in either breast to sugges t malignancy. ULTRASOUND: Limited bilateral breast ultrasound: Normal heterogeneous echotexture without focal solid or cystic m ass. IMPRESSION: 1. No evidence for malignancy in either breast. 2. Routine yearly screening mammogram and regular clinical breast examination are recommended. BI-RADS Category 1: Negative Reviewed, dictated and finalized at location B. IMPRESSION: 1. No evidence for malignancy in either breast. 2. Routine yearly screening mammogram and regular clinical breast examination a re recommended. BI-RADS Category 1: Negative
== END 2023-12-27 12:47 | disposition home or self-care (01) ==
PROVIDERS: PCP Obstetrics & Gynecology Gynecology; Visit Provider Advanced Practice Midwife
DX: R92.8 Other abnormal and inconclusive findings on diagnostic imaging of breast (principal); N64.89 Other specified disorders of breast
CPT/HCPCS: 76642; 77062; 77066; G0279

== ENCOUNTER 2024-05-26 16:14 | Outpatient (CLI) | payer OTHER, SELFPAY ==
[2024-05-26 17:08] LABS: Influenza A QL RT-PCR Negative (Negative); Influenza B QL RT-PCR Negative (Negative); RSV RNA, RT-PCR Negative (Negative); SARS-CoV-2 RNA PCR Negative (Negative)
== END 2024-05-26 16:15 | disposition home or self-care (01) ==
PROVIDERS: PCP Family Medicine; Visit Provider Family Medicine
DX: J06.9 Acute upper respiratory infection, unspecified (principal); Z20.822 Contact with and (suspected) exposure to COVID-19
CPT/HCPCS: 87637